=== PATIENT | male | born 1995 | race Caucasian/White ===

== ENCOUNTER 2024-10-13 19:22 | Observation (INO) | payer MEDICAID, SELFPAY ==
--- NOTE | 2024-10-13 19:27 | W.ED.PSYCHS ---
HPI - Psych General: Chief Complaint: Psychiatric Symptoms Stated Complaint: SI Time Seen by Provider: 10/13/24 19:25 Source: patient and EMS Mode of arrival: EMS Limitations: no limitations History of Present Illness: 29-year-old male who states that he has been suicidal over the last few weeks. He states he did not recently moved from a bigger city [place] states he has chronic pain has not been getting help for that he states he also has psychiatric issues and not been taking his meds. He has active suicidal thoughts and states he needs to get help as he is scared he can harm himself Associated symptoms: Reports depression and suicidal ideation Review of Systems Const: Denies: fever(s), chills, body aches or change in appetite ENMT: Denies: throat pain or dental pain Card: Denies: chest pain Resp: Denies: dyspnea GI: Denies: abdominal pain, nausea, vomiting or diarrhea Musc: Denies: neck pain or back pain Skin/Breast: Denies: rash Psych: Reports: depression and suicidal ideation Physical Exam Const: COMMON NORMALS: no acute distress, patient oriented x3 and healthy appearing HENMT: COMMON NORMALS: normocephalic and atraumatic HEAD & SCALP: normocephalic and atraumatic Neck/C-Spine: COMMON NORMALS: full ROM and supple Chest: COMMONS NORMALS: normal inspection of the chest Resp: COMMON NORMALS: normal respiratory effort Cardio: COMMON NORMALS: regular rate RATE: regular rate Extremity: COMMON NORMALS: normal to inspection and full ROM Neuro: COMMON NORMALS: patient oriented x3, moves all extremities and no focal motor deficits Psych: COMMON NORMALS: mental status grossly normal, Normal thought process present and cooperative MOOD & AFFECT: Yes depressed mood THOUGHT PROCESS: Normal thought process present THOUGHT CONTENT: Yes Suicidality present Skin: COMMON NORMALS: no rashes or lesions noted and no wounds GENERAL SKIN EXAM: no rashes or lesions noted Course Vital Signs: Vital signs: Vital Signs Pulse Rate 93 10/13/24 19:32 Respiratory Rate 18 10/13/24 19:32 Blood Pressure 145/100 10/13/24 19:32 Pulse Oximetry 96 10/13/24 19:32 Oxygen Delivery Me thod Room Air 10/13/24 19:32 MDM - Psych Medical Decision Making Patient presents here with suicidal ideations patient's medically cleared spoke to psychiatrist will admit here. Medical Records I reviewed the patient's medical records. Lab Data I reviewed the patient's lab results. No radiology studies performed this visit Discharge Plan Discharge Patient Disposition: Admitted As Inpatient Clinical Impression: Suicidal ideation Condition: Stable Coding Level of Care Code ED Time Clock Repairer for Wilfredo Zavaleta
[2024-10-13 19:29] VITALS: BMI 50.1
[2024-10-13 19:32] VITALS: BP 145/100; PULSE 93; RESP 18; O2SAT 96
--- NOTE | 2024-10-13 19:58 | PC.NURSE ---
96 Hour Involuntary Hold Patient Rights have been reviewed with the patient and a copy of the same has been provided to him. Japanese Professor Kavon was present at bedside at the time of presentation of Rights.
[2024-10-13 20:18] VITALS: BP 135/89; PULSE 70; O2SAT 92
[2024-10-13 20:32] LABS: Hematocrit 49.2 % (37-53); Hemoglobin 16.30 g/dL (11.27-16.99); Mean Corpuscular HGB Conc 33.1 g/dL (30-55); Mean Corpuscular Hemoglobin 28.8 pg (27-33); Mean Corpuscular Volume 86.9 fl (82-101); Nucleated Red Blood Cells % 0 %; Platelet Count 106 10^3/cmm (157-399); Red Blood Count 5.66 10^6/uL (3.85-5.65); White Blood Count 9.98 10^3/uL (3.29-11.43)
[2024-10-13 20:48] LABS: Alanine Aminotransferase 33 U/L (0-41); Albumin Level 4.2 g/dL (3.5-5.2); Alkaline Phosphatase 76 U/L (40-130); Anion Gap 18.4 (5-19); Aspartate Amino Transferase 20 U/L (0-40); Blood Urea Nitrogen 10 mg/dL (6-20); Calcium 9.4 mg/dL (8.5-10.5); Carbon Dioxide 22 mmol/L (22-29); Chloride 102 mmol/L (98-107); Creatinine Clr Calc Pharmacy 171.3046; Globulin 3.6 g/dL (1.3-4.6); Glucose 120 mg/dL (65-115); Osmolality Calculated 288 mOsm/kg (285-295); Potassium 3.4 mmol/L (3.5-5.1); Sodium 139 mmol/L (136-145); Total Protein 7.8 g/dL (6.6-8.7)
[2024-10-13 20:50] LABS: Acetaminophen < 5.0 ug/mL (10-30); Alcohol Level < 10 mg/dL (0-10); Salicylate < 0.3 mg/dL (3-10)
[2024-10-13 22:00] VITALS: BP 131/87; PULSE 102; RESP 19; TEMP 36.6; O2SAT 96
[2024-10-14 06:00] VITALS: BP 112/55; PULSE 60; RESP 18; TEMP 36.6; O2SAT 95
[2024-10-14 09:19] LABS: PCP Screen Urine Negative (Negative)
[2024-10-14 13:17] VITALS: BP 105/62; PULSE 71; RESP 16; TEMP 36.6; O2SAT 94
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
[2024-10-14 15:25] VITALS: BP 105/62; PULSE 71; RESP 16; TEMP 36.6; O2SAT 94
== END 2024-10-14 16:08 | disposition home or self-care (01) ==
LOC: ER 20:07 → NP 22:28
PROVIDERS: Admitting Provider Psychiatry & Neurology Psychiatry; Emergency Provider Emergency Medicine; Visit Provider Psychiatry & Neurology Psychiatry
DX: R45.851 Suicidal ideations (principal); F32.A Depression, unspecified; F43.10 Post-traumatic stress disorder, unspecified; J44.9 Chronic obstructive pulmonary disease, unspecified; G47.33 Obstructive sleep apnea (adult) (pediatric); F12.90 Cannabis use, unspecified, uncomplicated; F15.11 Other stimulant abuse, in remission
CPT/HCPCS: 36415; 80053; 80306; 80307; 85025; 99285; G0378; J9999

== ENCOUNTER → 2024-10-21 10:44 | Outpatient (BNVA) | payer MEDICAID, SELFPAY | PROVIDERS: PCP Nurse Practitioner Family; Visit Provider Nurse Practitioner Family | DX: Z79.899 Other long term (current) drug therapy (principal); Z13.6 Encounter for screening for cardiovascular disorders; E55.9 Vitamin D deficiency, unspecified | CPT/HCPCS: 80053; 80061; 81003; 82306; 84443; 85025 ==

== ENCOUNTER → 2024-11-09 14:06 | Outpatient (BNVA) | payer MEDICAID, SELFPAY | PROVIDERS: PCP Nurse Practitioner Family; Visit Provider Orthopaedic Surgery | DX: M51.9 Unspecified thoracic, thoracolumbar and lumbosacral intervertebral disc disorder (principal); M54.9 Dorsalgia, unspecified; G89.29 Other chronic pain | CPT/HCPCS: 72100 ==

== ENCOUNTER 2024-11-16 16:29 | Outpatient (CLI) | payer MEDICAID, SELFPAY ==
--- NOTE | 2024-11-16 16:45 | MR_ITS ---
WS: [id number] MRI LUMBAR SPINE NONCONTRAST TECHNIQUE: Sagittal T1, T2 and STIR imaging. Axial T1 and T2 imaging. CLINICAL INFORMATION: Back Pain COMPARISON: None. FINDINGS: Mild lumbar curve. Broad-based central protrusion T11-T12 with mild central canal stenosis. Prior postoperative changes L5-S1. 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 Shallow central protrusions in the thoracic spine most prominent at T7-8 with slight contact of the thoracic cord. L1-L2: Mild facet arthropathy. L2-L3: Mild congenital narrowing of the thecal sac. Mild facet arthropathy. Foramen are patent. L3-L4: Mild congenital narrowing of the thecal sac. Mild facet arthropathy. Minimal disc bulging with narrowing of the subarticular recess bilaterally. Mild bilateral foraminal narrowing. L4-L5: Mild annular bulging. Moderate facet arthropathy. Spinal canal and foramen are patent. L5-S1: Prior postoperative changes LEFT laminectomy with partial discectomy. Residual or recurrent central protrusion with a small annular fissure and impingement of the traversing LEFT S1 nerve root. Some of this may be due to granulation tissue. Recommend correlation LEFT S1 nerve root symptoms. Moderate narrowing of the thecal sac. Foramen are patent. Visualized pelvic bony structures: Normal. Paravertebral soft tissues: Normal. MR/MR lumbar spine wo con* [id number] IMPRESSION: 1. Postoperative changes LEFT laminectomy with partial discectomy. Residual or recurrent central protrusion with a small annular fissure and impingement of t he traversing LEFT S1 nerve root. Some of this may be due to granulation tissue . Recommend correlation LEFT S1 nerve root symptoms. Moderate narrowing of the thecal sac. 2. 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 Mi ld narrowing the thecal sac at L2-3 and L3-4. 3. Mild central canal stenosis T11-T12 with a broad-based central protrusion. 4. Central protrusion at T7-T8 with slight contact of the thoracic cord.
== END 2024-11-16 16:30 | disposition home or self-care (01) ==
LOC: RAD 16:30
PROVIDERS: PCP Nurse Practitioner Family; Visit Provider Orthopaedic Surgery
DX: M51.369 Other intervertebral disc degeneration, lumbar region without mention of lumbar back pain or lower extremity pain (principal); M48.061 Spinal stenosis, lumbar region without neurogenic claudication; M48.04 Spinal stenosis, thoracic region; M43.8X6 Other specified deforming dorsopathies, lumbar region; M51.24 Other intervertebral disc displacement, thoracic region; M47.896 Other spondylosis, lumbar region; M51.27 Other intervertebral disc displacement, lumbosacral region; R93.7 Abnormal findings on diagnostic imaging of other parts of musculoskeletal system; D69.6 Thrombocytopenia, unspecified; D72.829 Elevated white blood cell count, unspecified; Z98.890 Other specified postprocedural states
CPT/HCPCS: 72148; 80053; 80503; 85025

== ENCOUNTER → 2024-12-14 13:38 | Outpatient (BNVA) | payer MEDICAID, SELFPAY | PROVIDERS: PCP Nurse Practitioner Family; Visit Provider Family Medicine | DX: Z01.818 Encounter for other preprocedural examination (principal); E87.6 Hypokalemia | CPT/HCPCS: 80053; 81000; 85025 ==

== ENCOUNTER → 2024-12-20 11:33 | Outpatient (BNVA) | payer MEDICAID, SELFPAY | PROVIDERS: PCP Nurse Practitioner Family; Referring Provider Nurse Practitioner Family; Visit Provider Internal Medicine | DX: J44.89 Other specified chronic obstructive pulmonary disease (principal); J45.998 Other asthma; T78.49XA Other allergy, initial encounter; F17.210 Nicotine dependence, cigarettes, uncomplicated | CPT/HCPCS: 36415; 82103; 85025; 86003 ==

== ENCOUNTER 2024-12-22 13:51 | Observation (INO) | payer MEDICAID, SELFPAY ==
[2024-12-22] VITALS (19 sets, daily range): BP systolic 118–152; BP diastolic 70–89; PULSE 65–91; RESP 16–18; TEMP 36.3–37.1; O2SAT 90–98; BMI 45.8; BMI 44.1
--- NOTE | 2024-12-22 | XR_ITS ---
WS: [id number] C-ARM RADIOGRAPHS LUMBAR SPINE; 2 IMAGES HISTORY: OR PICS COMPARISON: 11/16/2024 Intraoperative imaging during lumbar fusion. Quality is suboptimal as it is obtained on the C-arm. Posterior lumbar fusion appears to be at the L5-S1 level. XR/XR lumbar spine 2-3V* [id number] IMPRESSION: Intraoperative imaging during posterior lumbar fusion.
--- NOTE | 2024-12-22 08:13 | ANES.PREANE2 ---
Pre-Anesthetic Assessment Height/Weight: Height 5 ft 7 in Weight 293 lb O2 Del Method Room Air 12/22/24 08:03 Preop Diagnosis: Lumbar stenosis with radiculopathy Operation Date: 12/22/24 09:05 Proposed Procedures p Posterior Lumbar Interbody Fusion PLIF(Not Applicable) - Oneil Aviles, DO Was Beta Chapis taken within 24 hours: N/A Was Clonidine taken within 24 hours: N/A Last intake: Intake Last Liquid Date 12/21/24 Last Liquid Time 22:00 Last Solid Date 12/21/24 Last Solid Time 22:00 Social Tobacco and No alcohol Exam alert, oriented x 3, clear to auscultation bilaterally and regular rate & rhythm Airway Submandibular: within normal limits Cervical ROM: within normal limits Mallampati: Class III Comments: Comments: Edentulous Anesthetic Plan ASA status: 3 Anesthesia: General Other: No prior issues with anesthesia NPO since yesterday evening History of COPD with asthma Daily smoker, nicotine and marijuana patient has a suicide risk assessment of 9 including daily thoughts of suicide. No active plan of suicide. States that this is better since he started Zoloft Labs reviewed from 12/20/2024 acceptable for procedure Plan for GETA Medications/Allergies Home Medications ?Medication ?Instructions ?Recorded ?Confirmed ?Last Taken ?Type albuterol sulfate 90 mcg/actuation 1 inh inhalation Q4H PRN shortness 10/21/24 12/21/24 Unknown Rx aerosol inhaler (Ventolin HFA) of breath or wheezing 30 days #8.5 grams sertraline 100 mg tablet (Zoloft) 100 mg PO DAILY #30 tabs 11/09/24 12/21/24 12/22/24 Rx hydrocodone 5 mg-acetaminophen 325 1 tab PO Q8H pain 10 days #30 tabs 11/24/24 12/21/24 Unknown Rx mg tablet fluticasone propionate 50 See Rx Instructions intranasal 11/25/24 12/21/24 12/22/24 Rx mcg/actuation nasal DAILY PRN allergy symptoms #16 spray,suspension grams potassium chloride 10 mEq 10 meq PO DAILY #30 tabs 11/25/24 12/21/24 12/22/24 Rx tablet,extended release (Klor-Con) Nebulizer 12/20/24 Unknown History albuterol sulfate 1.25 mg/3 mL 1.25 mg inhalation QID PRN 12/20/24 12/21/24 Unknown History solution for nebulization Shortness Of Breath budesonide-formoterol HFA 160 2 puff inhalation BID #10.2 grams 12/20/24 12/21/24 Unknown Rx mcg-4.5 mcg/actuation aerosol inhaler varenicline tartrate 0.5 mg (11)-1 See Rx Instructions PO PER PKG DIR 12/20/24 12/21/24 Unknown Rx mg (42) tablets in a dose pack #53 ea (Chantix Starting Month Box) Allergies Allergy/AdvReac Type Severity Reaction Status Date / Time Penicillins Allergy Severe ALGY-Anaphy Verified 12/20/24 10:39 laxis latex Allergy Intermediate ALGY-Bliste Verified 12/20/24 10:39 r Current Medications Generic Name Dose Route Start Last Admin Trade Name Freq PRN Reason Stop Dose Admin Sodium Chloride 1,000 mls @ 30 mls/hr 12/22/24 07:30 12/22/24 08:11 Sodium Chloride 0.9% IV 12/23/24 07:29 30 mls/hr .Q24H SAMMI Administration PFSH Anesthesia Medical History Hypokalemia Dyshidrotic eczema Otitis media, chronic, bilateral Thrombocytopenia Post-traumatic stress disorder, chronic Cannabis dependence, uncomplicated Other stimulant dependence, in remission Major depressive disorder, recurrent severe without psychotic features Obstructive sleep apnea Smoker COPD with asthma Vitamin D deficiency Encounter for screening for cardiovascular disorders Medication management Chronic 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
--- NOTE | 2024-12-22 11:10 | W.PM.OPSUD ---
Surgery/Procedure H&P Update DATE OF PROCEDURE: December 22, 2024 DATE H&P PERFORMED: 11/25/24 H&P UPDATE INFORMATION: I have reviewed H&P completed within last 30 days, I have examined patient prior to procedure and No changes to prior documentation PREOP DIAGNOSIS: Lumbar stenosis with radiculopathy PLANNED PROCEDURE: Operation Date: 12/22/24 09:05 Proposed Procedures p Posterior Lumbar Interbody Fusion PLIF(Not Applicable) - Oneil Aviles DO
[2024-12-22] MEDS: lidocaine-epi 1% 20 mL INJ INJECTION (11:27)
[2024-12-22] MEDS: heparin, porcine 1,000 unit/mL INJ 10 mL 5000 UNIT IRRIGATION (12:07)
[2024-12-22] MEDS: tobramycin 40 mg/mL SDV 2mL 120 MG XX (12:17)
--- NOTE | 2024-12-22 13:29 | PM.OP ---
Operative Report Date of procedure: December 22, 2024 Pre-op diagnosis: Lumbar stenosis with radiculopathy at L5-S1 Reherniation of L5-S1 disc with radiculopathy Post-op diagnosis: same Procedure done: 1. L5/S1 Interbody fusion with posterolateral fusion 2. Instrumentation L5-S1 3. Cage at L5-S1 4. L5/S1 laminectomy and facetectomies 5. use of autograft from same incision 6. allograft 7. Bone marrow aspirate from right iliac crest 8. Use of computer navigation/stereotactic for spine Surgeon: Oneil Aivles DO Estimated blood loss (mL): 150 Procedure: 1. L5/S1 Interbody fusion with posterolateral fusion 2. Instrumentation L5-S1 3. Cage at L5-S1 4. L5/S1 laminectomy and facetectomies 5. use of autograft from same incision 6. allograft 7. Bone marrow aspirate from right iliac crest 8. Use of computer navigation/stereotactic for spine Patient is brought to the operative suite. After undergoing anesthesia, the patient had neuro monitoring attached. Patient was then placed in the prone position on the Earl table. All areas of impingement were well-padded. Patient was then prepped and draped in the normal sterile fashion. Skin incision was then made over the L5/S1 space. Subperiosteal dissection was made out to the transverse processes of L5 and S1. Next attention was brought to the [employer] bone marrow aspirate kit was used to aspirate bone marrow aspirate. This was done by using the sharp probe to open up the bone and the iliac crest. Aspiration was performed and then the blunt probe was then used to dissect down to through the bone tunnel. An aspirating well drawn back a millimeter approximately 20 cc of bone marrow aspirate was used. Admixed with the allograft and autograft bone that will be used. Next attention was brought to placing the fiducial for the stereotactic placement of pedicle screws. 2 pins were placed in the right iliac crest. And then the fiducial was attached to this. C-arm was brought in and spun around the patient. That information was then loaded the computer The technique for placing the pedicle screws was to use a drill followed by the gearshift probe with computer navigation. Followed by the ball probe to feel the superior inferior medial lateral guerrero of the pedicles. Then placement of the screws. Was done at each pedicle. Screws were placed with computer navigation at L5 bilaterally and S1. Next attention was brought to performing the laminectomy of L5. This was done using the high-speed bur Kerrisons and curettes. Once the lamina was removed and then attention was brought to performing a partial facetectomy on the contralateral side. This was done again using the high-speed bur curettes and Kerrisons. The ligamentum flavum was taken down bilaterally from L5 to S1. Attention was then brought to the facet on the ipsilateral side. The facet was taken down. The S1 nerve was decompressed as it passed around the S1 pedicle. The laminectomy was done for purposes of decompressing the nerve as well as placement of the cage. The L5 nerve was identified as it traversed through the L5/S1 foramen. The thecal sac was identified and retracted. The L5/S1 disc base was identified. Using a knife the disc base was opened. And then sequential alex were placed. The first shaver was a 6 and the last shaver was a 10. Using a pituitary and down going curette the endplates were scraped and disc material was removed from the space. Once adequate decompression of the disc base was felt to be had. Osteoamp sponge was packed into the anterior aspect of the disc base. Then a size 10 cage from [employer] was placed after packing osteoamp into the cage. While placing the cage the thecal sac and S1 nerve was protected. C arm was used to ensure that the cages placed in the appropriate position. Attention was then brought to attaching the rods to the screws placed in the L5 to S1 bilaterally. Caps were torqued into position. Locking the construct in place. Wound was copiously irrigated and then attention was brought to decorticating the facets and transverse processes laterally. Bone that was taken down from the lamina was used along with osteoamp fibers and sponges were packed into the lateral gutters along the facet joints. This was done bilaterally. Wound was then closed in a layered fashion starting with the thoracolumbar fascia. 0-vicryl was used the sub cutaneous tissue was closed with 2-0 vicryl and skin with 4-0 monocryl. Glue was then used to seal the skin and a steril dressing was applied. Patient was then placed in the supine position. The endotracheal tube was removed and patient was transferred to the PACU in stable condition.
[2024-12-22] MEDS: fentaNYL 50 mcg/mL INJ 2mL IVP (13:50)
[2024-12-22] MEDS: morphine 4 mg/mL SDV 1 mL 2 MG IVP (14:37)
--- NOTE | 2024-12-22 14:51 | ANE.PACU2 ---
Inpatient post-anesthesia follow up: Airway intact: Yes Vital signs: Temperature 97.6 F Pulse Rate 90 Respiratory Rate 18 Blood Pressure 125/84 Pulse Oximetry 92 Oxygen Delivery Me thod Room Air Oxygen Flow Rate 8 Fraction of Inspir ed Oxygen Hydration adequate: Yes Nausea and vomiting: No Pain level: 3 Mental status: Baseline
[2024-12-22] MEDS: HYDROcodone-acetaminophen 5-325 mg Tablet PO ×2 (15:51→19:58)
[2024-12-23] VITALS: BP 114/75; PULSE 72; RESP 16; TEMP 36.4; O2SAT 95
[2024-12-23 05:13] LABS: Hematocrit 41.4 % (37-53); Hemoglobin 13.60 g/dL (11.27-16.99); Mean Corpuscular HGB Conc 32.9 g/dL (30-55); Mean Corpuscular Hemoglobin 29.1 pg (27-33); Mean Corpuscular Volume 88.5 fl (82-101); Nucleated Red Blood Cells % 0 %; Platelet Count 82 10^3/cmm (157-399); Red Blood Count 4.68 10^6/uL (3.85-5.65); White Blood Count 11.71 10^3/uL (3.29-11.43)
[2024-12-23] MEDS: HYDROcodone-acetaminophen 5-325 mg Tablet PO ×2 (05:18→09:39)
[2024-12-23 05:41] LABS: Alanine Aminotransferase 27 U/L (0-41); Albumin Level 3.7 g/dL (3.5-5.2); Alkaline Phosphatase 67 U/L (40-130); Anion Gap 15.2 (5-19); Aspartate Amino Transferase 31 U/L (0-40); Blood Urea Nitrogen 10 mg/dL (6-20); Calcium 8.7 mg/dL (8.5-10.5); Carbon Dioxide 23 mmol/L (22-29); Chloride 107 mmol/L (98-107); Creatinine Clr Calc Pharmacy 178.8585; Globulin 2.8 g/dL (1.3-4.6); Glucose 140 mg/dL (65-115); Osmolality Calculated 293 mOsm/kg (285-295); Potassium 4.2 mmol/L (3.5-5.1); Sodium 141 mmol/L (136-145); Total Protein 6.5 g/dL (6.6-8.7)
[2024-12-23 06:00] VITALS: BP 128/72; PULSE 80; RESP 16; TEMP 37; O2SAT 92
[2024-12-23 07:27] VITALS: BP 121/78; PULSE 82; PULSE 88; RESP 16; TEMP 36.7; O2SAT 96; O2SAT 97
--- NOTE | 2024-12-23 07:50 | PC.PHAR ---
Visited pt room to verify medications the nursing staff entered. Pt states he is out of [place] 5-325 and is requesting higher strength. Pt also wants Tramadol and a muscle relaxer prescribed, if at all possible. I told him I would put a note in his chart for the request. 12/23/24
--- NOTE | 2024-12-23 10:25 | PM.DCS ---
Discharge Providers Date of Admission: 12/22/24 13:51 Date of Discharge: December 23, 2024 Attending Provider at Admission: Oneil Aviles DO Attending Provider at Discharge: Oneil Aviles DO Primary Care Provider: KATIE Feliciano Reason for Visit Reason for Visit: M54.42 Physical Exam Narrative: Patient sitting up in chair. Complaining of pain in the low back where surgery was Urinary Catheter Management: Mayo: Cath Placed During This Visit: yes, but has since been removed by the nurse Reason for Continuing Indwelling Catheter: Decision to DC Catheter Urinary Catheter Date of Insertion: 12/22/24 Urinary Catheter Time of Insertion: 11:15 Date Urinary Catheter Removed: 12/22/24 Time Urinary Catheter Discontinued: 18:28 Discharge Data Studies Completed and Pending Pending at discharge Category Date Time Status C-arm Fluoroscopy 45623 Routine Exams 12/22/24 07:30 Ordered Laboratory Results WBC 11.71 10^3/uL (3.29-11.43) H 12/23/24 04:20 RBC 4.68 10^6/uL (3.85-5.65) 12/23/24 04:20 Hgb 13.60 g/dL (11.27-16.99) 12/23/24 04:20 Hct 41.4 % (37-53) 12/23/24 04:20 MCV 88.5 fl (82-101) 12/23/24 04:20 MCH 29.1 pg (27-33) 12/23/24 04:20 MCHC 32.9 g/dL (30-55) 12/23/24 04:20 RDW 14.5 % (12.1-15.1) 12/23/24 04:20 Plt Count 82 10^3/cmm (157-399) L 12/23/24 04:20 MPV 13.1 fL (7.4-10.4) H 12/23/24 04:20 Neut % (Auto) 84.7 % 12/23/24 04:20 Lymph % (Auto) 7.2 % 12/23/24 04:20 Beltrami % (Auto) 7.5 % 12/23/24 04:20 Eos % (Auto) 0.0 % 12/23/24 04:20 Baso % (Auto) 0.2 % 12/23/24 04:20 Neut # (Auto) 9.92 10^3/uL (1.8-7.7) H 12/23/24 04:20 Lymph # (Auto) 0.8 10^3/uL (0.8-4.8) 12/23/24 04:20 Beltrami # (Auto) 0.9 10^3/uL (0.2-0.9) 12/23/24 04:20 Eos # (Auto) 0.0 10^3/uL (0.0-0.8) 12/23/24 04:20 Baso # (Auto) 0.0 10^3/uL (0.0-0.1) 12/23/24 04:20 Nucleated RBC % (auto) 0 % 12/23/24 04:20 Nucleated RBCs # 0.0 /100WBC 12/23/24 04:20 Sodium 141 mmol/L (136-145) 12/23/24 04:20 Potassium 4.2 mmol/L (3.5-5.1) 12/23/24 04:20 Chloride 107 mmol/L (98-107) 12/23/24 04:20 Carbon Dioxide 23 mmol/L (22-29) 12/23/24 04:20 Anion Gap 15.2 (5-19) 12/23/24 04:20 BUN 10 mg/dL (6-20) 12/23/24 04:20 Creatinine 0.8 mg/dL (0.7-1.2) 12/23/24 04:20 GFR Calculation 113.5 mL/min (90-130) 12/23/24 04:20 Glucose 140 mg/dL (65-115) H 12/23/24 04:20 Calculated Osmolality 293 mOsm/kg (285-295) 12/23/24 04:20 Calcium 8.7 mg/dL (8.5-10.5) 12/23/24 04:20 Total Bilirubin 0.4 mg/dL (0.15-1.2) 12/23/24 04:20 AST 31 U/L (0-40) 12/23/24 04:20 ALT 27 U/L (0-41) 12/23/24 04:20 Alkaline Phosphatase 67 U/L (40-130) 12/23/24 04:20 Total Protein 6.5 g/dL (6.6-8.7) L 12/23/24 04:20 Albumin 3.7 g/dL (3.5-5.2) 12/23/24 04:20 Globulin 2.8 g/dL (1.3-4.6) 12/23/24 04:20 Vitals Last Vital Signs Temp 98.0 F 12/23/24 07:27 Pulse 82 12/23/24 07:27 Resp 16 12/23/24 07:27 BP 121/78 12/23/24 07:27 Pulse Ox 96 12/23/24 07:27 O2 Del Method Room Air 12/23/24 07:27 O2 Flow Rate 8 12/22/24 13:57 Discharge Plan Discharge Patient Disposition: Home Condition: Stable Prescriptions: New hydrocodone-acetaminophen 5-325 mg tablet 1 - 2 tab PO .Q4-6H Qty: 40 0RF Continued sertraline [Zoloft] 100 mg tablet 100 mg PO DAILY Qty: 30 1RF albuterol sulfate [Ventolin HFA] 90 mcg/actuation HFA aerosol inhaler 1 inh inhalation Q4H PRN (Reason: shortness of breath or wheezing) 30 Days Qty: 8.5 1RF fluticasone propionate 50 mcg/actuation spray,suspension See Rx Instructions intranasal DAILY PRN (Reason: allergy symptoms) Qty: 16 0RF Rx Instructions: 1-2 SPRAYS BID for 1 week, then as needed intranasally daily PRN potassium chloride [Klor-Con 10] 10 mEq tablet extended release 10 meq PO DAILY Qty: 30 0RF albuterol sulfate 1.25 mg/3 mL solution for nebulization 1.25 mg inhalation QID PRN (Reason: Shortness Of Breath) (DME) Nebulizer 0 .ROUTE .MEDSUPPLY budesonide-formoterol 160-4.5 mcg/actuation HFA aerosol inhaler 2 puff inhalation BID Qty: 10.2 6RF varenicline tartrate [Chantix Starting Month Box] 0.5 mg (11)- 1 mg (42) tablets,dose pack See Rx Instructions PO PER PKG DIR Qty: 53 0RF Rx Instructions: PO PER PKG DIR Discontinued hydrocodone-acetaminophen 5-325 mg tablet 1 tab PO Q8H 10 Days Qty: 30 0RF Discharge Order = DC NOW: Discharge Order (Routine); Ordered 12/23/24 Ordered By: Oneil Aviles Discharge Diet: Advance as tolerated Discharge Activity: Limit activity as instructed Patient Instructions: Acute Wound Care (DC), Opioid Safety, Post Anesthesia Care, Patient Portal & Josefina Instructions Activity Restrictions/Additional Instructions: Thank you for choosing [facility] for your care! The following is a list of instructions, from your provider, to follow upon your discharge to ensure you have the optimal recovery from your recent injury or surgery. Follow-up care is a parmar part of your treatment and safety. Be sure to make and go to all appointments, and call your doctor if you are having problems. If you do not already have a follow-up appointment made, call Dr. Aviles's office in the next 1-3 days to make follow up appointment for 1 weeks at [phone]. It is also a good idea to know your test results and keep a list of the medicines you take. Medications will be prescribed for you at your provider?s discretion. These medications are to be used as instructed;if they are taken more often that prescribed they will not be refilled early and in most cases will not be refilled at all. > When a refill is needed,you should contact our office 2-3 business days beforeyour prescription runs out. Medications will NOTbe refilled by sanitation worker cleaning machinery providers after hours! > Many pain medications contain Tylenol (Acetaminophen). Do not consume more than 4,000 mg of Tylenol per day in total with any combination of medications. > Pain medications can cause constipation. Please use an over the counter stool softener as directed, while taking pain medications. Consult your local pharmacist with questions or recommendations on stool softeners. If constipation persists, contact our office or your primary care provider. > While under our care,you are not to receive pain medications or other controlled substances from any other provider unless our office is notified and approves. Any attempts to do so will result in refusal to prescribe any further pain medications and possible dismissal from our practice. ? Keep dressing on we will change in 1 week. Please notify us if there is any changes with the dressing ? Showering is permitted, however we ask that you do not take a bath, sit in a whirlpool / Jacuzzi, or go swimming for 1 month. For only the first 2 days after surgery, lt wilt be necessary for you to cover your wound/dressing with plastic and tape to keep it dry. ? Walking is essential for the healing process after surgery. We would like you to slowly advance your walking. This should be done on relatively flat clear ground (inside or out) or can be done on a treadmill. Remember this goal does not have to happen all at once, slowly increase your distance and duration. This can be broken into more more than one walk per day as tolerated. Patients who walk as directed after surgery rarely require Physical Therapy. In the unlikely event this issue arises your provider will direct hospital staff to make the appropriate arrangements. ? No lifting over 5 pounds {a gallon of milk) or bending/twisting until further notice. Each of these activities places an unnecessary amount of stress onto the body and can impede the delicate healing process. > Instead of bending at the waist, keep your back straight and bend at the knees. > Instead of twisting your torso, keep your back straight and turn your entire body with your feet. ? You may sleep in any position which makes you comfortable.Many patients find comfort sleeping in a reclining chair. It is not abnormal to have difficulty sleeping for the first several weeks following your surgery. We recommend trying Benadryl or Tylenol PM as directed to help with your sleeping difficulties. Both medications are over the counter and available without prescription. ? NO SMOKING!!!Smoking dramatically increases the probability of developing postoperative wound infections. ? Common complaints after lumbar and/or thoracic spine surgery include, but are not limited to: numbness and/or tingling in the legs, pain around the incision and surrounding tissues, muscle spasms, or stiffness of the middle to low back. Contact our office if these symptoms persist or if an acute change occurs. ? No driving for the first 3-5 days, and not while taking narcotics until seen at your follow-up appointment and cleared.There are no restrictions for riding on short trips, however if you take a longer trip, arrangements should be made to make regular stops to get out of the vehicle and stretch . ? Swelling is an unfortunate event that will take place with any surgery and is the primary source of your postoperative discomfort. While walking and regular approved activities helps control inflammation, there are additional steps you can take to minimize swelling. > Place ice over the surgical site and surrounding tissue for twenty minutes, followed by applying a low/medium heat (heating pad) for an additional twenty minutes every 1-2 hours as needed for pain relief. > You may use of over the counter anti-inflammatory medications (Ibuprofen, Motrin, Aleve, Advil, etc) as directed on the package label. These types of medicines will significantly reduce the amount of discomfort you experience after surgery from swelling. It should be noted that if you have an allergy to any of these medications, or a history of ulcers or kidney disease you should consult your primary care provider prior to starting these medications. Discharge Attestations Time Spent in Discharge Care*: less than 30 min Quality Metrics Clinical Quality Measures [ No reported AMI, CVA or VTE this stay] Coding Level of Care Code Acute Code for Chg Meghann
[2024-12-23 13:14] VITALS: BP 121/78; PULSE 82; RESP 16; TEMP 36.7; O2SAT 96
== END 2024-12-23 13:16 | disposition home or self-care (01) ==
LOC: MEDSURG 13:52
PROVIDERS: Admitting Provider Orthopaedic Surgery; PCP Nurse Practitioner Family; Visit Provider Orthopaedic Surgery
PROC: (CPT 22612; principal; 2024-12-22 09:05)
DX: M51.17 Intervertebral disc disorders with radiculopathy, lumbosacral region (principal); Z79.891 Long term (current) use of opiate analgesic; J44.9 Chronic obstructive pulmonary disease, unspecified; F17.210 Nicotine dependence, cigarettes, uncomplicated; F43.12 Post-traumatic stress disorder, chronic; F12.90 Cannabis use, unspecified, uncomplicated; F32.9 Major depressive disorder, single episode, unspecified
CPT/HCPCS: 22633; 22614; 63052; 20939; 22853; 20930; 22840; 36415; 51702; 72100; 76000; 80053; 85025; 97161; C1713; C1776; G0378; J0131; J1100; J1171; J1644; J1885; J2250; J2270; J2405; J2704; J3010; J3260; J3373; J3490; J7030; J7120; J7613; J9999

== ENCOUNTER → 2025-01-27 13:44 | Outpatient (BNVA) | payer MEDICAID, SELFPAY | PROVIDERS: PCP Nurse Practitioner Family; Visit Provider Orthopaedic Surgery | DX: Z98.890 Other specified postprocedural states (principal); Z98.1 Arthrodesis status | CPT/HCPCS: 72100 ==